=== PATIENT | male | born 1995 | race Caucasian/White ===

== ENCOUNTER 2018-01-12 18:36 | Emergency (ER) | payer BC ==
[2018-01-12] MEDS ORDERED: ceFAZolin 1 GM in Sodium Chloride 0.9% 100 ML IV STA (18:49)
[2018-01-12] MEDS ORDERED: cefTRIAXone (Rocephin) 1 gm Inj ONE (18:50)
[2018-01-12] MEDS ORDERED: Tdap Vaccine 0.5 ml Vial (10-64 yrs) IM ONE ×2 (18:55→19:03)
[2018-01-12] MEDS ORDERED: Sodium Chloride 0.9% 50 ML IV ONE (19:01)
[2018-01-12] MEDS ORDERED: Iohexol 300 100 ML IJ ONE (19:01)
[2018-01-12 19:04] LABS: BASO % 0.5 % (0.0-2.0); EOS # 0.5 K/uL (0.0-0.7); EOS % 5.4 % (0.0-4.0); HEMOGLOBIN 15.9 g/dL (12.0-18.0); LYMPH % 45.7 % (20.0-40.0); MEAN CELL VOLUME 86.7 fl (80.0-94.0); MEAN CORPUSCULAR HEMOGLOBIN 28.4 pg (27.0-31.0); MEAN CORPUSCULAR HGB CONC 32.8 g/dL (33.0-37.0); MEAN PLATELET VOLUME 10.1 fl (7.2-11.7); MONO # 0.6 K/uL (0.0-0.8); MONO % 7.2 % (0.0-10.0); NEUT # 3.6 K/uL (1.8-7.0); NEUT % 41.2 % (50.0-75.0); NRBC % 0.1 % (0.0-0.0); RBC 5.6 Mil/uL (4.40-5.90); RED CELL DISTRIBUTION WIDTH 14.2 % (11.5-14.5); WHITE BLOOD COUNT 8.9 K/uL (4.8-10.8)
[2018-01-12 19:08] VITALS: RESP 18
[2018-01-12 19:17] LABS: PROTHROMBIN TIME 11.5 Seconds (9.8-13.1)
[2018-01-12 19:19] LABS: ALB/GLOB RATIO 1.5 (1.0-2.1); ALT/SGPT 50 U/L (21-72); AST/SGOT 49 U/L (17-59); BLOOD UREA NITROGEN 17 mg/dl (9-20); CALCIUM 10.1 mg/dL (8.4-10.2); GFR NON-AFRICAN AMERICAN > 60
[2018-01-12 19:20] LABS: PARTIAL THROMBOPLASTIN TIME 31.1 Seconds (25.6-37.1)
[2018-01-12 19:33] VITALS: TEMP 98.2
[2018-01-12] MEDS ORDERED: Sodium Chloride 0.9% 1,000 ML IV STA ×2 (19:59)
[2018-01-12] MEDS ORDERED: Propofol 10 mg/ml Inj (20 ML) IV ONE (21:02)
[2018-01-12] MEDS ORDERED: Succinylcholine 200 mg/10 ml Inj IV ONE (21:03)
[2018-01-12] MEDS ORDERED: Propofol 10 mg/ml Inj (20 ML) ONE (21:04)
[2018-01-12] MEDS ORDERED: Propofol 10 mg/ml 1,000 MG/100 ML VIAL ONE (21:18)
[2018-01-12] MEDS ORDERED: Midazolam 50 MG in Dextrose 5% In Water 50 ML IV STA (21:19)
[2018-01-12] MEDS ORDERED: MIDAZOLAM HCL 2 MG/ML PO STA (21:27)
[2018-01-12] MEDS ORDERED: Midazolam 2 MG/2 ML VIAL IV STA (21:29)
[2018-01-12] MEDS ORDERED: Propofol 10 mg/ml 1,000 MG/100 ML VIAL IV SCH (21:30)
[2018-01-12 21:32] LABS: ABG ALLEN TEST YES; ARTERIAL BLOOD GAS HCO3 23.2 mmol/L (21-28); ARTERIAL BLOOD GAS O2 SAT 98.8 % (95-98); ARTERIAL BLOOD GAS PCO2 49 mm/Hg (35-45); ARTERIAL BLOOD GAS PH 7.31 (7.35-7.45); ARTERIAL BLOOD GAS PO2 84 mm/Hg (80-100); ARTERIAL BLOOD GAS TCO2 26.2 mmol/L (22-28)
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
[2018-01-12 22:05] VITALS: PULSE 102
[2018-01-12 22:35] VITALS: O2SAT 97
[2018-01-12 23:52] VITALS: BP 111/59
--- NOTE | 2018-01-13 10:06 | RAD ---
Date of service: 2018-01-12 21:09:00 PROCEDURE: CHEST RADIOGRAPH, 1 VIEW HISTORY: post-intubation COMPARISON: None available. FINDINGS: LUNGS: Clear. PLEURA: No pneumothorax or pleural fluid seen. CARDIOVASCULAR: Normal heart size. ET tube positioned with its tip 2.2 cm above the tracheal farida. OSSEOUS STRUCTURES: No significant abnormalities. VISUALIZED UPPER ABDOMEN: Normal. OTHER FINDINGS: None. IMPRESSION: ET tube tip 2.2 cm above the tracheal farida.
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
== END 2018-01-12 22:17 | disposition short-term general hospital (02) ==
LOC: H.ER 18:36
DX: S21.139A Puncture wound without foreign body of unspecified front wall of thorax without penetration into thoracic cavity, initial encounter (principal); X99.1XXA Assault by knife, initial encounter
CPT/HCPCS: 36600; 70498; 71045; 71260; 74177; 80053; 82803; 85025; 85610; 85730; 86850; 86900; 90471; 90715; 96361; 96365; 96375; 99285; J0330; J0696; J2250; J2270; J2704; J3010; J7030; Q9967

== ENCOUNTER 2018-07-11 09:41 | Emergency (ER) | payer BC ==
[2018-07-11 09:43] VITALS: BMI 32.5
[2018-07-11 09:45] VITALS: BP 133/72; PULSE 81; RESP 16; TEMP 98.3; O2SAT 96
--- NOTE | 2018-07-11 10:44 | ED PDOC ---
HPI: Back Chief Complaint (Nursing): Back Pain Additional Complaint(s): 23 y/o M with no pertinent PMHx presents to ED c/o bilateral low back pain that exacerbated this morning. pain is described as pulling, bot sides of back, non- radiating, constant, 8/10 intensity and not associated with paresthesias. Pt reports moving to a new apartment yesterday, he lifted many heavy boxes. Pt treied PO Motrin in the morning with mild improvement. Pt denies fever, chills, nausea, vomiting, chest pain, SOB, abdominal pain, change in bowel movement, dysuria, hematuria, difficulties on bowel movement, rash or any trauma. PMD: none NKDA Meds: Motrin PRN PMHx: denied PSHx: denied FHx: NC SHx: No cmoking, no lacohol, denies rec drugs use. Past Medical History Vital Signs: Last Vital Signs Temp 98.3 F 07/11/18 09:54 Pulse 81 07/11/18 09:54 Resp 16 07/11/18 09:54 BP 133/72 07/11/18 09:54 Pulse Ox 96 07/11/18 09:54 Primary Care Provider: FAMILY PROVIDER,NO - Medical History PMH: Asthma, HTN - Family History Family History: States: Diabetes, Hypertension - Home Medications Home Medications: Ambulatory Orders Medication Instructions Recorded Cyclobenzaprine [Cyclobenzaprine 10 mg PO TID PRN #15 tab 07/11/18 HCl] Naproxen [Naprosyn] 500 mg PO BID PRN #15 tablet 07/11/18 - Allergies Allergies/Adverse Reactions: Allergies Allergy/AdvReac Type Severity Reaction Status Date / Time No Known Allergies Allergy Verified 10/02/15 11:28 Review of Systems Constitutional: Negative for: Fever, Chills Eyes: Negative for: Pain, Vision Change, Redness ENT: Negative for: Ear Pain, Nose Congestion, Mouth Pain Cardiovascular: Negative for: Chest Pain, Palpitations Respiratory: Negative for: Cough, Shortness of Breath, Hemoptysis, SOB with Exertion Gastrointestinal: Negative for: Nausea, Vomiting, Abdominal Pain Genitourinary Male: Negative for: Dysuria, Frequency Musculoskeletal: Positive for: Back Pain. Negative for: Neck Pain Skin: Negative for: Rash, Jaundice Neurological: Negative for: Weakness, Numbness, Incoordination, Dizziness Physical Exam - Physical Exam Appears: Positive for: Well Head Exam: Positive for: ATRAUMATIC, NORMAL INSPECTION Eye Exam: Positive for: Normal appearance, EOMI ENT: Positive for: Normal ENT Inspection Cardiovascular/Chest: Positive for: Regular Rate, Rhythm Respiratory: Positive for: Normal Breath Sounds Gastrointestinal/Abdominal: Positive for: Soft. Negative for: Tenderness, Organomegaly, Mass Back: Positive for: Normal Inspection, Decreased ROM, Muscle Spasm (On right lower back. ), Other (No spine or paraspinal tenderness.). Negative for: L CVA Tenderness, R CVA Tenderness, Vertebral Tenderness Extremity: Positive for: Normal ROM. Negative for: Tenderness, Pedal Edema, Calf Tenderness, Swelling Neurological/Psych: Positive for: Awake, Alert, Normal Tone - ECG O2 Sat by Pulse Oximetry: 96 Medical Decision Making Medical Decision Makin:42 --Trial of Toradol and Flexeril was ordered. 11:50 --Pt reports improvement of pain, 7/10 intensity now. --Pt is stable to go home. --Will discharge pt on Naproxen and Flexeril. Disposition - Clinical Impression Clinical Impression: Acute back pain - Patient ED Disposition Is Patient to be Admitted: No Counseled Patient/Family Regarding: Diagnosis, Need For Followup - Disposition Referrals: [facility] [Outside] Disposition Time: 12:02 Condition: IMPROVED Prescriptions: Cyclobenzaprine [Cyclobenzaprine HCl] 10 mg PO TID PRN #15 tab PRN Reason: Pain Naproxen [Naprosyn] 500 mg PO BID PRN #15 tablet PRN Reason: Pain, Moderate (4-7) Instructions: Upper Back Pain Forms: [employer] (Yoruba), [facility] ED School/Work Excuse
== END 2018-07-11 12:02 | disposition home or self-care (01) ==
LOC: H.ER 09:41
DX: M54.5 Low back pain (principal); I10 Essential (primary) hypertension; J45.909 Unspecified asthma, uncomplicated
CPT/HCPCS: 96372; 99283; J1885